=== PATIENT | male | born 1935 | race Caucasian/White ===

== ENCOUNTER 2016-12-03 09:19 | Outpatient (CLI) ==
[2014-07-07 17:48] VITALS: BMI 28.1
--- NOTE | 2016-12-03 10:19 | DI ---
EXAM: Single contrast esophagram. History: Dysphagia. Technique: Patient was given oral barium and multiple spot films of the esophagus and gastroesophag eal junction were obtained in various projections. Findings: Multiple uncoordinated esophageal contractions were seen throughout the mid and distal es ophagus. No esophageal mucosal lesions identified. Patient had a hard time clearing of the barium from the esophagus due to the esophageal spasms. No hiatal hernia identified. Gastroesophageal ref lux was identified. Impression: 1. Diffuse esophageal spasm and gastroesophageal reflux.
== END 2016-12-03 09:20 | disposition home or self-care (01) ==
LOC: RAD 09:19
PROVIDERS: ATTEND Family Medicine
DX: R13.10 Dysphagia, unspecified (principal)

== ENCOUNTER 2018-01-03 09:02 | Outpatient (CLI) ==
[2014-07-07 17:48] VITALS: BMI 28.1
== END 2018-01-03 09:03 ==
LOC: LAB 09:02
PROVIDERS: ATTEND Urology
DX: C61 Malignant neoplasm of prostate (principal)
CPT/HCPCS: 36415; 84153

== ENCOUNTER 2018-01-20 10:18 | Outpatient (CLI) ==
[2014-07-07 17:48] VITALS: BMI 28.1
== END 2018-01-20 10:19 | disposition home or self-care (01) ==
LOC: LAB 10:18
PROVIDERS: ATTEND Urology
DX: C61 Malignant neoplasm of prostate (principal)
CPT/HCPCS: 36415; 82310

== ENCOUNTER 2018-02-13 10:11 | Outpatient (CLI) ==
[2014-07-07 17:48] VITALS: BMI 28.1
== END 2018-02-13 10:12 | disposition home or self-care (01) ==
LOC: RHC-LAB 10:11
PROVIDERS: ATTEND Nurse Practitioner Family
DX: R05 Cough (principal)
CPT/HCPCS: 87651; 87804

== ENCOUNTER 2018-05-25 09:00 | Outpatient (RCR) ==
[2014-07-07 17:48] VITALS: BMI 28.1
--- NOTE | 2018-05-22 11:44 | RS.OPPTEV2 ---
Date of Note: 05/22/18 Visit #: 1 Date of Evaluation: 05/22/18 Payer Source: MEDICARE Surgery Performed?: No Treatment Diagnosis: cervical pain and decreased ROM History of Condition/Mechanism of Injury:: pt reports he has had neck pain for several years but has gotten worse in the last few weeks. Prior Level of Function.....Patient was independent with: ADL's, Self Care, Caregiving, Ambulation/Mobility, Community Integration/Access Functional Limitations: Reaching, Pushing, Pulling, Lifting, Carrying, Community Access/Integration (long distances) Current Subjective/complaints:: pt reports he did see the chiropractor for neck pain and they recommended he come for PT. pt reports he is still driving, however his has to look because he cannot turn his head to see if things are coming. Treatment Side (optional): N/A *Precautions: n/a Medical History Medical History: Hypertension, COPD, Arthritis, Cancer (prostate) Surgical History: Knee Replacement (left 2005) Surgical History Comments:: appey Smoking Status: Former smoker Hx Home Medications: Hydrocodone, Naproxen Patient's Goals: decrease pain and improve ROM Pain Assessment - Pain Description Pain Location: cervical spine Pain Description: Sharp, Aching, Chronic Current Pain Intensity: 2 Worst Pain Intensity: 7 Functional Outcome Measure Neck Disability Index: 12 (24%) - G Codes & Severity Modifier G Codes & Modifier: carrying moving and handling objects: current CJ. carrying moving and handling objects: goal CI Source of G Code score: neck disability index Observation - Observation Posture: Forward Head, Rounded Shoulders, Increased Thoracic Kyphosis, Decreased Cervical Lordosis Handedness: Right Gait - Gait Pattern General Gait Pattern Observation: No Deviations/Normal, Crouched Gait General Range of Motion: BUE WFL's. BLE WFL's Muscle Strength: BUE 4+/5,. BLE 5/5 - ROM Cervical Spine Range of Motion Limitations: Soft Tissue Tightness, Muscle Weakness, Pain Comments: cervical flex WFL's with pain, cervical extension to neutral with increased pain, pt also with limited cervical rotation L worse than R and very limited cervical lat bending due to pain. - Strength Cervical Extension: 2+ Poor+ Cervical Flexion: 3 Fair Cervical Lateral Flexion: 2 Poor Cervical Rotation: 3- Fair- - Special Tests Foraminal Distraction: pt with decreased pain with distraction Foraminal Compression: Positive Left, Positive Right Palpation Palpation Findings: Tenderness, Trigger Point, Muscle Guarding Comments:: tenderness, trigger points and muscle guarding noted in B upper traps. Sensation - Sensation Right Upper Extremity: Intact/Normal Left Upper Extremity: Intact/Normal Right Lower Extremity: Impaired Left Lower Extremity: Impaired Comments: reports n/t B feet Balance - Sitting Balance Static Sitting Balance: Good Dynamic Sitting Balance: Good - Standing Balance Static Standing Balance: Good Dynamic Standing Balance: Good - Comments Balance Assessment Comments: pt presents with good dynamic balance. - Heat/Cryotherapy Treatment: Cryotherapy Comments:: cervical spine Interventions - Exercise/Activities/Manual Therapy Exercises/Activities: pt instructed on cervical retraction, scapular retraction , corner stretch, shld shrugs. Manual Therapy: manual cervical traction applied with decreased pain with traction. HOME EXERCISE PROGRAM: pt given written HEP including cervical retraction, scapular retraction, shld shrugs, corner stretch - Charges Timed Code Treatment Minutes: 46 Total Treatment Time: 51 Procedures billed for this date of service:: eval med, cold pack EVALUATION COMPLEXITY LEVEL EVALUATION COMPLEXITY LEVEL: HISTORY: Medium (COPD, HTN, CA, OA), EXAM OF BODY SYSTEMS: Medium (pain, ROM, muscle tightness), CLINICAL PRESENTATION: Medium ( evolving,), CLINICAL DECISION MAKING: Medium Assessment Assessment: pt presents with cervical pain and decreased ROM. pt with muscle guarding, trigger points and tenderness B upper trap muscles. pt's pain intense at area of occiput. Patient Education: Home Exercise Program, Education of Plan of Care Rehab Potential: Good Short Term Goals Goal #1: Improve cervical ROM ext approx 10, improve rotation L equal to R Goal to be met by: 06/05/18 (100%) Goal #2: pt report pain <5/10 with activity Goal to be met by: 06/05/18 (100%) Goal #3: pt report increased ability to perform ADL's with less pain Goal to be met by: 06/05/18 Manager Aviation Goals Goal #1: Patient independent with initial HEP Goal to be met by: 06/19/18 Goal #2: score improved neck disabiliy index < 20 Goal to be met by: 06/19/18 Goal #3: pt able to turn head to see to drive without wifes assistance. Goal to be met by: 06/19/18 Goal #4: Improve cervical ext and rotation to WFL's Goal to be met by: 06/19/18 Plan - Treatment to be Provided Procedures: Therapeutic Exercises, Therapeutic Activity, Manual Therapy, Massage , Patient Education Modalities: Cryotherapy, Hot Packs, Mechanical Traction - Treatment Plan Frequency: 2 X week Duration: 4 weeks ORDER # VISITS AND/OR THROUGH DATE: 06/19/18 - Treatment Code (1) Cervical pain Code(s): M54.2 - CERVICALGIA (2) Decreased ROM of intervertebral discs of cervical spine Code(s): M53.82 - OTHER SPECIFIED DORSOPATHIES, CERVICAL REGION
--- NOTE | 2018-05-25 10:26 | RS.OPPTDN ---
Subjective Date of Note: 05/25/18 Visit #: 2 Date of Evaluation: 05/22/18 Payer Source: MEDICARE Treatment Diagnosis: cervical pain and decreased ROM Current Subjective/complaints:: Patient says that he is sore in his neck and no position seems to be providing relief. He denies any increase in pain related to continuous damp weather. He reports trying HEP. *Precautions: n/a Pain Assessment - Pain Description Pain Location: He indicates neck pain to both sides equally. - Heat/Cryotherapy Treatment: Hot Pack (cervical x 20 mins in supine) Interventions - Exercise/Activities/Manual Therapy Exercises/Activities: Patient receives gentle passive cervical SB and rotation limited range in supine and sitting. He performs shoulder shrugs and scap adduction. Total minutes of Exercise: 10 Manual Therapy: Manual traction (cervical) and occipital release. STM and trigger point work throughout the bilateral UT. Total minutes of Manual Therapy: 16 HOME EXERCISE PROGRAM: pt given written HEP including cervical retraction, scapular retraction, shld shrugs, corner stretch - Charges Timed Code Treatment Minutes: 26 Total Treatment Time: 46 Procedures billed for this date of service:: hp, mt, ex Assessment: Patient presents with moderate pain and limited cervical ROM, but was relieved by treatment as well as some increase in rotation noted after MT and EX. Patient would benefit from mechanical traction next session as it was being utilized today and unable to initiate it. Patient Education: Education of diagnosis, Body/Joint mechanics, Home Exercise Program, Education of Plan of Care Short Term Goals Goal #1: Improve cervical ROM ext approx 10, improve rotation L equal to R Goal to be met by: 06/05/18 (100%) Progress towards Goal:: Progressing Goal #2: pt report pain <5/10 with activity Goal to be met by: 06/05/18 (100%) Goal #3: pt report increased ability to perform ADL's with less pain Goal to be met by: 06/05/18 Can Inspector Goals Goal #1: Patient independent with initial HEP Goal to be met by: 06/19/18 Goal #2: score improved neck disabiliy index < 20 Goal to be met by: 06/19/18 Goal #3: pt able to turn head to see to drive without wifes assistance. Goal to be met by: 06/19/18 Goal #4: Improve cervical ext and rotation to WFL's Goal to be met by: 06/19/18 Plan PLAN OF CARE EXPIRES ON:: 06/19/18 ORDER # VISITS AND/OR THROUGH DATE: 06/19/18 PLAN: Patient to begin mechanical traction next session
== END 2018-05-27 23:59 ==
PROVIDERS: ATTEND Family Medicine
DX: M54.2 Cervicalgia (principal); M53.82 Other specified dorsopathies, cervical region

== ENCOUNTER 2018-06-19 10:00 | Outpatient (RCR) ==
[2014-07-07 17:48] VITALS: BMI 28.1
--- NOTE | 2018-05-29 10:58 | RS.OPPTDN ---
Subjective Date of Note: 05/29/18 Visit #: 3 Date of Evaluation: 05/22/18 Payer Source: MEDICARE Treatment Diagnosis: cervical pain and decreased ROM Current Subjective/complaints:: Patient says he has had soreness to both sides of his neck, but eager to try traction today. *Precautions: n/a - Heat/Cryotherapy Treatment: Hot Pack (cervical in supine x 20 mins) - Traction Treatment Method: Mechanical, Intermittent, Cervical Patient Position: Supine Amount of Force Applied: 15 Hold Time: 25 Rest Time: 5 Duration of treatment: 12 Traction Treatment Comment: 2 steps Interventions - Exercise/Activities/Manual Therapy Exercises/Activities: Patient receives gentle passive cervical SB and rotation limited range in supine and sitting. He performs shoulder shrugs and scap adduction. Isometric neck retraction 2x5. Red tband for scap retraction in sitting x 12. Explained mechanical traction/benefits. Total minutes of Exercise: 7 Manual Therapy: DTM and trigger point work to bilateral UT x 10 mins. Cross stretching. Total minutes of Manual Therapy: 13 HOME EXERCISE PROGRAM: pt given written HEP including cervical retraction, scapular retraction, shld shrugs, corner stretch - Charges Timed Code Treatment Minutes: 20 Total Treatment Time: 52 Procedures billed for this date of service:: hp, mechanical traction, EX Assessment: Patient appeared to marilyn traction well. He continues with moderate increase in muscle guarding bilateral UT. He should benefit from progressing traction. Patient Education: Body/Joint mechanics, Home Exercise Program, Education of Plan of Care Patient demonstrates compliance with HEP?: Yes Short Term Goals Goal #1: Improve cervical ROM ext approx 10, improve rotation L equal to R Goal to be met by: 06/05/18 (100%) Progress towards Goal:: Progressing Goal #2: pt report pain <5/10 with activity Goal to be met by: 06/05/18 (100%) Goal #3: pt report increased ability to perform ADL's with less pain Goal to be met by: 06/05/18 Detention Goals Goal #1: Patient independent with initial HEP Goal to be met by: 06/19/18 Goal #2: score improved neck disabiliy index < 20 Goal to be met by: 06/19/18 Goal #3: pt able to turn head to see to drive without wifes assistance. Goal to be met by: 06/19/18 Goal #4: Improve cervical ext and rotation to WFL's Goal to be met by: 06/19/18 Plan PLAN OF CARE EXPIRES ON:: 06/19/18 ORDER # VISITS AND/OR THROUGH DATE: 06/19/18 PLAN: BIW for progression of traction, EX, and MT
--- NOTE | 2018-06-05 10:52 | RS.OPPTDN ---
Subjective Date of Note: 06/01/18 Visit #: 4 Date of Evaluation: 05/22/18 Payer Source: MEDICARE Treatment Diagnosis: cervical pain and decreased ROM *Precautions: n/a - Traction Treatment Method: Mechanical, Intermittent, Cervical Patient Position: Supine Traction Treatment Comment: #. 25 sec hold. 5 sec relax. 16 mins Interventions - Exercise/Activities/Manual Therapy Exercises/Activities: Patient receives gentle passive cervical SB and rotation limited range in supine and sitting. He performs shoulder shrugs and scap adduction. Isometric neck retraction 2x5. Isometric lateral rotation bilaterally x 5. Progressed to green tband for scap retraction in sitting and bilateral shoulder ER x 12. 2# wand for bilateral shoulder flexion x12 above shoulder height with ease. Total minutes of Exercise: 15 Manual Therapy: na HOME EXERCISE PROGRAM: pt given written HEP including cervical retraction, scapular retraction, shld shrugs, corner stretch - Charges Timed Code Treatment Minutes: 31 Total Treatment Time: 51 Procedures billed for this date of service:: hp, traction (mechanical), EX Assessment: Patient demo increased toleration for stretching and ROM to cspine as well as improved pain following traction. He is progressing with tbands and postural strength. Patient is aware of poor posture and motivated to improve it. Patient Education: Body/Joint mechanics, Home Exercise Program Patient demonstrates compliance with HEP?: Yes Short Term Goals Goal #1: Improve cervical ROM ext approx 10, improve rotation L equal to R Goal to be met by: 06/05/18 (100%) Progress towards Goal:: Progressing Goal #2: pt report pain <5/10 with activity Goal to be met by: 06/05/18 (100%) Progress towards Goal:: Progressing Goal #3: pt report increased ability to perform ADL's with less pain Goal to be met by: 06/05/18 Progress towards Goal:: Progressing Jail Goals Goal #1: Patient independent with initial HEP Goal to be met by: 06/19/18 Progress towards goal: Progressing Goal #2: score improved neck disabiliy index < 20 Goal to be met by: 06/19/18 Goal #3: pt able to turn head to see to drive without wifes assistance. Goal to be met by: 06/19/18 Goal #4: Improve cervical ext and rotation to WFL's Goal to be met by: 06/19/18 Plan PLAN OF CARE EXPIRES ON:: 06/19/18 ORDER # VISITS AND/OR THROUGH DATE: 06/19/18 PLAN: Patient to continue progressing traction this week along with postural therex.
--- NOTE | 2018-06-08 10:11 | RS.OPPTDN ---
Subjective Date of Note: 06/08/18 Visit #: 5 Date of Evaluation: 05/22/18 Payer Source: MEDICARE Treatment Diagnosis: cervical pain and decreased ROM Current Subjective/complaints:: Reports the neck pain is absent to minimal at rest,but varies with active motion. *Precautions: n/a Pain Assessment - Pain Description Pain Location: cervical Pain Description: Tightness, Dull, Aching, Chronic Pain Description: L worse than R generally Current Pain Intensity: 0 at rest Other Comments regarding Pain:: elevates with AROM - Heat/Cryotherapy Treatment: Hot Pack (20 mnis. prior to manual therapy and traction) - Traction Treatment Method: Mechanical, Intermittent, Cervical Patient Position: Supine Amount of Force Applied: 19-20# Hold Time: 30 secs. Rest Time: 5 secs. Duration of treatment: 20 mins. Traction Treatment Comment: Tolerates well. Interventions - Exercise/Activities/Manual Therapy Exercises/Activities: HEP review only while on heat today.He is compliant to stretches. Total minutes of Exercise: 0 Manual Therapy: na Total minutes of Manual Therapy: 15 mins HOME EXERCISE PROGRAM: pt given written HEP including cervical retraction, scapular retraction, shld shrugs, corner stretch - Charges Timed Code Treatment Minutes: 35 Total Treatment Time: 55 Procedures billed for this date of service:: hp,manual ,traction Assessment: Patient tolerates traction well.He has good understanding of hEp.He is noted to have tender ness at L occipital area,and hypersensitive trigger point of the L upper trap. muscle belly.He is attentive and compliant to recommendations for his care. 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 Goal to be met by: 06/19/18 Progress towards goal: Progressing Goal #4: Improve cervical ext and rotation to WFL's Goal to be met by: 06/19/18 Plan PLAN OF CARE EXPIRES ON:: 06/19/18 ORDER # VISITS AND/OR THROUGH DATE: 06/19/18 PLAN: Cont. PT to reduce/eliminate cervical pain ,improve ROM.
--- NOTE | 2018-06-12 15:57 | RS.OPPTDN ---
Subjective Date of Note: 06/12/18 Visit #: 6 Date of Evaluation: 05/22/18 Payer Source: MEDICARE Treatment Diagnosis: cervical pain and decreased ROM Current Subjective/complaints:: Patient reports turning his head while driving seems to be improving .He reports no negative effects of last PT session. *Precautions: n/a Pain Assessment - Pain Description Pain Location: cervical Pain Description: Dull, Aching Current Pain Intensity: 0 Other Comments regarding Pain:: varies with amount and what type of activity - Heat/Cryotherapy Treatment: Hot Pack (20 mins. prior to manual therapy and traction) - Traction Treatment Method: Mechanical, Intermittent, Cervical Patient Position: Supine Amount of Force Applied: 20 # Hold Time: 30 secs. Rest Time: 5 secs. Duration of treatment: 20 mins. Traction Treatment Comment: Tolerates well. Interventions - Exercise/Activities/Manual Therapy Exercises/Activities: HEP review of cervical lateral flexion ,L and R rotation, chin tucks.Scapular ROM for posture. Total minutes of Exercise: 0 Manual Therapy: 20 mins. to bilateral upper traps and scalenes Total minutes of Manual Therapy: 20 HOME EXERCISE PROGRAM: pt given written HEP including cervical retraction, scapular retraction, shld shrugs, corner stretch - Charges Timed Code Treatment Minutes: 40 Total Treatment Time: 60 Procedures billed for this date of service:: hp,manual therapy ,traction Assessment: Patient reports less tightness ,especially with rotation.He has less tenderness to palpation of the lateral aspect of the cervical area and also the muscle belly of the upper traps. Patient Education: Education of diagnosis, Body/Joint mechanics, Home Exercise Program, Home Safety, Activity Modification, Education of Plan of Care Short Term Goals Goal #1: Improve cervical ROM ext approx 10, improve rotation L equal to R Goal to be met by: 06/05/18 Progress towards Goal:: Progressing Goal #2: pt report pain <5/10 with activity Goal to be met by: 06/05/18 Progress towards Goal:: Progressing Goal #3: pt report increased ability to perform ADL's with less pain Goal to be met by: 06/05/18 Progress towards Goal:: Progressing Half-Way Goals Goal #1: Patient independent with initial HEP Goal to be met by: 06/19/18 Progress towards goal: Progressing Goal #2: score improved neck disabiliy index < 20 Goal to be met by: 06/19/18 Goal #3: pt able to turn head to see to drive without wifes assistance. Goal to be met by: 06/19/18 Progress towards goal: Progressing Goal #4: Improve cervical ext and rotation to WFL's Goal to be met by: 06/19/18 Plan PLAN OF CARE EXPIRES ON:: 06/19/18 ORDER # VISITS AND/OR THROUGH DATE: 06/19/18 PLAN: Cont PT to increase cervical ROM with less pain.
--- NOTE | 2018-06-15 13:24 | RS.OPPTDN ---
Subjective Date of Note: 06/15/18 Visit #: 8 Date of Evaluation: 05/22/18 Payer Source: MEDICARE Treatment Diagnosis: cervical pain and decreased ROM Current Subjective/complaints:: Patient states traction is helping. He reports improved neck mobility and pain. Reports he continues to work on HEP and be more aware of correcting posture. *Precautions: n/a - Heat/Cryotherapy Treatment: Hot Pack (cervical in supine x 15 mins) - Traction Treatment Method: Mechanical, Intermittent, Cervical Patient Position: Supine Amount of Force Applied: 22 Hold Time: 30 Rest Time: 5 Duration of treatment: 20 Traction Treatment Comment: 2 steps Interventions - Exercise/Activities/Manual Therapy Exercises/Activities: Passive stretching for SB, rotation, levator scap. Isometric neck retraction 2x5, L and SB x 5. Review of postural mechanics and HEP. Total minutes of Exercise: 10 Manual Therapy: 20 mins. to bilateral upper traps and scalenes. Cross pattern stretching and trigger work. HOME EXERCISE PROGRAM: pt given written HEP including cervical retraction, scapular retraction, shld shrugs, corner stretch - Charges Timed Code Treatment Minutes: 30 Total Treatment Time: 65 Procedures billed for this date of service:: hp, mechanical traction, u/s Assessment: Patient progressing with demo improved postural awareness and increased cspine ROM actively to WFL. Patient admits improved pain level and muscle guarding. Decreasing muscle tone demo significantly smaller trigger point to the R UT. Ciaran progressive traction well. Patient Education: Body/Joint mechanics, Home Exercise Program, Education of Plan of Care Patient demonstrates compliance with HEP?: Yes Short Term Goals Goal #1: Improve cervical ROM ext approx 10, improve rotation L equal to R Goal to be met by: 06/05/18 Progress towards Goal:: Met Goal #2: pt report pain <5/10 with activity Goal to be met by: 06/05/18 Progress towards Goal:: Met Goal #3: pt report increased ability to perform ADL's with less pain Goal to be met by: 06/05/18 Progress towards Goal:: Progressing Ticket Collector Goals Goal #1: Patient independent with initial HEP Goal to be met by: 06/19/18 Progress towards goal: Progressing Goal #2: score improved neck disabiliy index < 20 Goal to be met by: 06/19/18 Comments: Assess next week Goal #3: pt able to turn head to see to drive without wifes assistance. Goal to be met by: 06/19/18 Progress towards goal: Progressing Goal #4: Improve cervical ext and rotation to WFL's Goal to be met by: 06/19/18 Plan PLAN OF CARE EXPIRES ON:: 06/19/18 ORDER # VISITS AND/OR THROUGH DATE: 06/19/18 PLAN: Patient to continue x 1 more session per LTG dates.
--- NOTE | 2018-06-19 13:45 | RS.OPPTDN ---
Subjective Date of Note: 06/19/18 Visit #: 8 Date of Evaluation: 05/22/18 Payer Source: MEDICARE Treatment Diagnosis: cervical pain and decreased ROM Current Subjective/complaints:: Patient says he is able to drive now without needing to rely on his . He says he is able to "do more" with the L UE, but is not specific. Reports neck and shoulder pain have been greatly helped by therapy. He admits to routinely working on his HEP and has received gains this way as well. *Precautions: n/a - Heat/Cryotherapy Treatment: Hot Pack (cervical and over the L shoulder in supine x 20 mins) - Traction Treatment Method: Mechanical, Intermittent, Cervical Patient Position: Supine Amount of Force Applied: 20 Hold Time: 25 Rest Time: 5 Duration of treatment: 20 Traction Treatment Comment: 2 steps, applied strap to forehead for added stability Interventions - Exercise/Activities/Manual Therapy Exercises/Activities: Passive stretching/ROM to the L shoulder in supine all directions. Manual isometrics all directions 2x5. 3# wand for bilateral shoulder flexion x 10. Blue tband for scap retraction x 10. REassessed Neck Disability Index and discussed continuing the need for HeP and pain managment ideas for home. Total minutes of Exercise: 20 Manual Therapy: na HOME EXERCISE PROGRAM: pt given written HEP including cervical retraction, scapular retraction, shld shrugs, corner stretch - Objective Findings Observations,measurements,etc.: Patient scores 4 on neck Disability Index or 8% impairment. Eval: 12 or 24% impairment - Charges Timed Code Treatment Minutes: 20 Total Treatment Time: 60 Procedures billed for this date of service:: hp, mechanical traction, ex Assessment: Patient demo L shoulder ROM comparable to the R now in regards to IR. Flexion is ~155 degrees, ABD is ~150 degrees. Patient has good understanding of HEP and is progressing independently. Goals met for Gcodes. 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 Goal to be met by: 06/19/18 Progress towards goal: Met Goal #4: Improve cervical ext and rotation to WFL's Goal to be met by: 06/19/18 Progress towards goal: Met Plan PLAN OF CARE EXPIRES ON:: 06/19/18 ORDER # VISITS AND/OR THROUGH DATE: 06/19/18 PLAN: Patient completed current order with goals met.
--- NOTE | 2018-06-19 14:05 | RS.OPPTDN ---
Subjective Date of Note: 06/05/18 Visit #: 5 Date of Evaluation: 05/22/18 Payer Source: MEDICARE Treatment Diagnosis: cervical pain and decreased ROM Current Subjective/complaints:: Patient reports neck seems to be less tight and denies any difficulty with traction. *Precautions: n/a - Heat/Cryotherapy Treatment: Hot Pack (cervical x 20 mins in supine) Interventions - Exercise/Activities/Manual Therapy Exercises/Activities: Patient receives gentle passive cervical SB and rotation limited range in supine and sitting. He performs shoulder shrugs and scap adduction. Isometric neck retraction 2x5. Isometric lateral rotation bilaterally x 5. Green tband for scap retraction in sitting and bilateral shoulder ER x 12. 2# wand for bilateral shoulder flexion x12 above shoulder height. Green tband for bilateral horizontal abd x 10. Total minutes of Exercise: 22 Manual Therapy: na HOME EXERCISE PROGRAM: pt given written HEP including cervical retraction, scapular retraction, shld shrugs, corner stretch - Charges Timed Code Treatment Minutes: 22 Total Treatment Time: 62 Procedures billed for this date of service:: hp, mechanical traction, ex Patient Education: Home Exercise Program Patient demonstrates compliance with HEP?: Yes Short Term Goals Goal #1: Improve cervical ROM ext approx 10, improve rotation L equal to R Goal to be met by: 06/05/18 Progress towards Goal:: Met Goal #2: pt report pain <5/10 with activity Goal to be met by: 06/05/18 Progress towards Goal:: Met Goal #3: pt report increased ability to perform ADL's with less pain Goal to be met by: 06/05/18 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 Goal to be met by: 06/19/18 Progress towards goal: Progressing Goal #4: Improve cervical ext and rotation to WFL's Goal to be met by: 06/19/18 Progress towards goal: Progressing Plan PLAN OF CARE EXPIRES ON:: 06/19/18 ORDER # VISITS AND/OR THROUGH DATE: 06/19/18 PLAN: Patient to continue x 2 more weeks to progress traction and improve neck strength and L UE strength/ROM
--- NOTE | 2018-06-19 15:36 | RS.OPPTDC ---
Date of Discharge: 06/19/18 Date of Evaluation: 05/22/18 Number of Visits: 9 Treatment Diagnosis: cervical pain and decreased ROM Current Level of Function: pt demonstrates improved ROM LUE equal to RUE. pt with 5/5 strength L flex/ext, IR/ER. pt consistent with HEP. Current Complaints/Gains: pt reports little to no pain in cervical spine and L shld. pt states he is able to drive easier without help of his . Soreness only with L side bending and rotation. Functional Outcome Measure Neck Disability Index: 4 (8%) - G Codes & Severity Modifier G Codes & Modifier: carrying moving and handling dc CI. carrying moving and handling goal CI Source of G Code score: neck disability index Observation - Observation Posture: Forward Head, Rounded Shoulders Handedness: Right Gait - Gait Pattern General Gait Pattern Observation: No Deviations/Normal General Range of Motion: LUE equal to RUE Muscle Strength: 5/5 MMT for L shld flex/ext, IR/ER. Interventions - Exercise/Activities/Manual Therapy Exercises/Activities: n/a Manual Therapy: na HOME EXERCISE PROGRAM: pt given written HEP including cervical retraction, scapular retraction, shld shrugs, corner stretch - Charges Timed Code Treatment Minutes: n/a Total Treatment Time: n/a Procedures billed for this date of service:: n/a Assessment Assessment: pt has met all STG goals and LTG 1, 2, 3, and progressing toward # 4. pt continues with mild soreness in cervical spine with side bending and rotation. 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 Goal to be met by: 06/19/18 Progress towards goal: Met Goal #4: Improve cervical ext and rotation to WFL's Goal to be met by: 06/19/18 Progress towards goal: Progressing Plan Reason for Discharge:: Maximum Potential Met
== END 2018-06-27 23:59 ==
PROVIDERS: ATTEND Family Medicine
DX: M54.2 Cervicalgia (principal); M53.82 Other specified dorsopathies, cervical region